=== PATIENT | female | born 1995 | race African-American/Black ===

== ENCOUNTER 2020-11-18 00:59 | Outpatient (CLI) | payer OTHER ==
[~2020-11-18] VITALS: Ht 165.1 cm; Wt 75.0 kg
[2020-11-18 01:34] VITALS: BP 117/60
[2020-11-18] MEDS ORDERED: OXYcodone/APAP 5/325MG TABLET PO ONE (03:25)
== END 2020-11-18 03:35 | disposition home or self-care (01) ==
LOC: LDOP 00:59
PROVIDERS: ATTEND Obstetrics & Gynecology
DX: O62.9 Abnormality of forces of labor, unspecified (principal); Z3A.37 37 weeks gestation of pregnancy
CPT/HCPCS: 59025

== ENCOUNTER 2020-11-22 05:56 | Outpatient (CLI) | payer OTHER | END 2020-11-22 08:28 | disposition home or self-care (01) | LOC: LDOP 05:56 | PROVIDERS: ATTEND Obstetrics & Gynecology | DX: O42.92 Full-term premature rupture of membranes, unspecified as to length of time between rupture and onset of labor (principal); Z3A.38 38 weeks gestation of pregnancy ==